=== PATIENT | female | born 1955 | race Caucasian/White ===

== ENCOUNTER → 2019-09-07 | Outpatient (CLI) | payer BC | LOC: RAD 08:24 | PROVIDERS: ATTEND Nurse Practitioner Family | DX: M54.41 Lumbago with sciatica, right side (principal); M54.42 Lumbago with sciatica, left side; Z53.9 Procedure and treatment not carried out, unspecified reason ==

== ENCOUNTER → 2022-04-04 | Outpatient (CLI) | payer MEDICARE | LOC: CARD 11:14 | PROVIDERS: ATTEND Internal Medicine Cardiovascular Disease | DX: I51.89 Other ill-defined heart diseases (principal); I42.0 Dilated cardiomyopathy | CPT/HCPCS: 93306 ==

== ENCOUNTER → 2022-11-07 | Outpatient (CLI) | payer MEDICARE | LOC: CARD 12:00 | PROVIDERS: ATTEND Internal Medicine Cardiovascular Disease | DX: I50.22 Chronic systolic (congestive) heart failure (principal) | CPT/HCPCS: 93306 ==

== ENCOUNTER → 2022-11-28 | Outpatient (CLI) | payer MEDICARE ==
[~2022-11-28] MED LIST: CATHETER FLUSH 10 ML SYR IVP PRN; REGADENOSON 0.4 MG/5 ML SYR (LEXISCAN) IV ONE
[2022-11-28 08:33] VITALS: BP 159/107
--- NOTE | 2022-12-03 16:21 | STRESS TEST ---
DATE OF SERVICE: 11/28/2022 RESTING AND POST REGADENOSON TECHNETIUM-99M TETROFOSMIN SPECT CT IMAGING ORDERING PHYSICIAN: Dr. Beck. PRIMARY PHYSICIAN: [facility]. CLINICAL DIAGNOSIS: Dilated cardiomyopathy. Baseline images were carried out after injection of 10.98 mCi technetium-99m tetrofosmin. This was followed by 0.4 mg regadenoson and 32.1 mCi technetium-99m tetrofosmin for stress imaging. The electrocardiogram showed sinus rhythm with atypical left bundle branch block. The electrocardiogram did not change significantly with regadenoson infusion. Review of images at rest and following stress indicates a patchy tracer uptake. There does not appear to be distinct evidence of myocardial ischemia or infarction. Left ventricular end-diastolic volume is 192 mL. Gated images show global hypokinesis. Left ventricular ejection fraction 21%. CONCLUSION: 1. Dilated cardiomyopathy with moderately severe enlargement of the left ventricle, global hypokinesis of left ventricle and a calculated left ventricular ejection fraction of 21%. 2. There does not appear to be distinct evidence of myocardial ischemia or infarction. Job ID: [id number] DocumentID: [id number] Dictated Date: 12/03/2022 13:17:27 Cashier Manager Date: 12/03/2022 16:19:00 Dictated By: ANDREZ BECK MD; MAKI; FACP; FACC; JAVY
== END ==
LOC: CARD 07:30
PROVIDERS: ATTEND Internal Medicine Cardiovascular Disease
DX: I25.10 Atherosclerotic heart disease of native coronary artery without angina pectoris (principal)
CPT/HCPCS: 78452; 93017; A9502